=== PATIENT | female | born 1950 | race Caucasian/White ===

== ENCOUNTER 2022-11-18 11:37 | Inpatient (IN) ==
[~2022-11-18 11:37] MED LIST: Buffered Lidocaine 1% SYRIN 1 ml INTRADERM ONE; Lactated Ringers 1000 ml BAG 1,000 ML IV SCH
[2022-11-18] MEDS ORDERED: ceFAZolin 2 GM PREMIX 2 GM/50 ML BAG ONE (12:22)
[2022-11-18] MEDS ORDERED: ROPIVACAINE 5 MG/ML 30 ML BTL (0.5%) ONE ×2 (14:00→14:05)
[2022-11-18] MEDS ORDERED: Midazolam 2 mg/2 ml VIAL 1 mg/ml 2 ml VIAL (2 mg) ONE ×2 (14:02→15:00)
[2022-11-18] MEDS ORDERED: Naloxone 0.4 mg VIAL 0.4 mg/ml 1 ml VIAL IV PRN (14:44)
[2022-11-18] MEDS ORDERED: Ondansetron 4 mg VIAL 2 MG/ML 2 ml VIAL IV PRN ×2 (14:44→15:25)
[2022-11-18] MEDS ORDERED: fentaNYL 100 mcg/2 ml 50 MCG/ML VIAL IV PRN (14:44)
[2022-11-18] MEDS ORDERED: Acetaminophen IV 1 GM/100ML 1,000 MG/100 ML BAG IV PRN (14:44)
[2022-11-18] MEDS ORDERED: HYDROmorphone 1 MG/1 ML SYRINGE IV PRN (14:44)
[2022-11-18] MEDS ORDERED: Morphine 2 MG/ML SYRINGE IV PRN (15:25)
[2022-11-18] MEDS ORDERED: Ondansetron ODT 4 mg TAB 4 MG TAB PO PRN (15:25)
[2022-11-18] MEDS ORDERED: Lactulose 30 ml UDC PO PRN (15:25)
[2022-11-18] MEDS ORDERED: Magnesium Hydroxide LIQ 30 ML UDC PO PRN (15:25)
[2022-11-18] MEDS ORDERED: Lactated Ringers 1000 ml BAG 1,000 ML IV SCH (16:00)
[2022-11-18] MEDS: Magnesium Hydroxide LIQ 30 ML UDC PO SCH (20:05)
[2022-11-18] MEDS: BALSALAZIDE DISO 750 MG PO SCH (22:16)
[2022-11-18] MEDS: Latanoprost 0.005% 2.5 ml BTL BOTH EYES SCH (22:16)
[2022-11-18] MEDS: ceFAZolin 1 GM ADVAN 1 GM in NS 0.9% 50 ML 50 ML IVPB SCH (23:31)
[2022-11-19 06:06] LABS: Hematocrit 32 % (35-47); Hemoglobin 10.5 g/dL (12.0-16.0); Platelet Count 262 10^3/uL (150-450)
[2022-11-19 06:25] LABS: Calcium 9.4 mg/dL (8.6-10.3); Creatinine, Serum 0.63 mg/dL (0.51-0.95); Potassium 3.7 mmol/L (3.5-5.0); eGFR CKD-EPI 93.6 (>60)
[2022-11-19] MEDS: ceFAZolin 1 GM ADVAN 1 GM in NS 0.9% 50 ML 50 ML IVPB SCH ×2 (07:31→14:26)
[2022-11-19] MEDS: Magnesium Hydroxide LIQ 30 ML UDC PO SCH ×2 (08:58→19:52)
[2022-11-19] MEDS: Vitamin THERAPEUTIC TAB PO SCH (09:00)
[2022-11-19] MEDS ORDERED: Irbesartan/Hydrochlor 150/12.5 TAB PO SCH (09:00)
[2022-11-19] MEDS: BALSALAZIDE DISO 750 MG PO SCH ×3 (09:08→19:52)
[2022-11-19] MEDS: Latanoprost 0.005% 2.5 ml BTL BOTH EYES SCH (19:52)
[2022-11-20 05:42] LABS: Hematocrit 31 % (35-47); Hemoglobin 10.1 g/dL (12.0-16.0); Mean Platelet Volume 7.9 fL (7.4-10.4); Platelet Count 232 10^3/uL (150-450)
[2022-11-20] MEDS: BALSALAZIDE DISO 750 MG PO SCH ×3 (10:40→20:31)
[2022-11-20] MEDS: Vitamin THERAPEUTIC TAB PO SCH (10:40)
[2022-11-20] MEDS: Magnesium Hydroxide LIQ 30 ML UDC PO SCH ×2 (10:45→20:41)
[2022-11-20] MEDS: Latanoprost 0.005% 2.5 ml BTL BOTH EYES SCH (20:32)
[2022-11-21 06:01] LABS: Hematocrit 28 % (35-47); Hemoglobin 9.5 g/dL (12.0-16.0); Mean Platelet Volume 8.2 fL (7.4-10.4); Platelet Count 218 10^3/uL (150-450)
[2022-11-21] MEDS: Magnesium Hydroxide LIQ 30 ML UDC PO SCH ×2 (07:45→20:18)
[2022-11-21] MEDS: BALSALAZIDE DISO 750 MG PO SCH ×3 (07:56→20:18)
[2022-11-21] MEDS: Vitamin THERAPEUTIC TAB PO SCH (07:56)
[2022-11-21 17:04] LABS: Rapid COVID-19 Molecular Undetected (Undetected)
[2022-11-21] MEDS: Latanoprost 0.005% 2.5 ml BTL BOTH EYES SCH (20:17)
[2022-11-22 06:21] LABS: Hematocrit 28 % (35-47); Hemoglobin 9.3 g/dL (12.0-16.0); Platelet Count 303 10^3/uL (150-450)
[2022-11-22 07:46] VITALS: BP 145/80
[2022-11-22] MEDS: Magnesium Hydroxide LIQ 30 ML UDC PO SCH (07:58)
[2022-11-22] MEDS: Vitamin THERAPEUTIC TAB PO SCH (08:28)
[2022-11-22] MEDS: BALSALAZIDE DISO 750 MG PO SCH (08:28)
== END 2022-11-22 11:05 | DRG 470 ==
LOC: INTOOBSV 11:37 → AA 11:37 → OBSVTOIN 15:30 → SSU 19:02
PROVIDERS: ADMIT Orthopaedic Surgery Adult Reconstructive Orthopaedic Surgery; ATTEND Orthopaedic Surgery Adult Reconstructive Orthopaedic Surgery

== ENCOUNTER 2024-01-23 05:32 | Observation (INO) ==
[~2024-01-23 05:32] MED LIST changes: -Buffered Lidocaine 1% SYRIN 1 ml INTRADERM ONE; -Lactated Ringers 1000 ml BAG 1,000 ML IV SCH; +Naloxone 0.4 mg VIAL 0.4 mg/ml 1 ml VIAL IV PRN
[2024-01-23] MEDS ORDERED: Tranexamic Acid 1 GM/100ML BAG 2,000 MG/200 ML BAG IV ONE (05:57)
[2024-01-23] MEDS ORDERED: ceFAZolin 2 GM PREMIX 2 GM/50 ML BAG ONE (05:57)
[2024-01-23 06:14] LABS: Rapid COVID-19 Molecular Undetected (Undetected)
[2024-01-23] MEDS ORDERED: ROPIVACAINE 5 MG/ML 30 ML BTL (0.5%) ONE (07:06)
[2024-01-23] MEDS ORDERED: Lidocaine 2% PF 5 ML VIAL ONE (07:16)
[2024-01-23] MEDS ORDERED: Ondansetron 4 mg VIAL 2 MG/ML 2 ml VIAL ONE ×2 (07:16→10:28)
[2024-01-23] MEDS ORDERED: Dexmedetomidine 200 mcg/2 ml 2 ml VIAL (200 mcg) ONE (07:16)
[2024-01-23] MEDS ORDERED: Albumin Human 5% 12.5 GM/250 ML BTL IV ONE (07:23)
[2024-01-23] MEDS ORDERED: Bupivacaine 0.5% PF 10 ML SDV VIAL INJ ONE (07:29)
[2024-01-23] MEDS ORDERED: Rocuronium 50 mg VIAL 10 mg/ml 5 ml VIAL (50 mg) ONE (07:49)
[2024-01-23] MEDS ORDERED: Lactulose 30 ml UDC PO PRN (10:13)
[2024-01-23] MEDS ORDERED: Ondansetron ODT 4 mg TAB 4 MG TAB PO PRN (10:13)
[2024-01-23] MEDS ORDERED: Magnesium Hydroxide LIQ 30 ML UDC PO PRN (10:13)
[2024-01-23] MEDS ORDERED: Ondansetron 4 mg VIAL 2 MG/ML 2 ml VIAL IV PRN (10:13)
[2024-01-23] MEDS ORDERED: fentaNYL 100 mcg/2 ml 50 MCG/ML VIAL ONE (10:27)
[2024-01-23] MEDS: Ondansetron 4 mg VIAL 2 MG/ML 2 ml VIAL IV PRN (10:32)
[2024-01-23] MEDS: fentaNYL 100 mcg/2 ml 50 MCG/ML VIAL IV PRN (10:35)
[2024-01-23] MEDS: Lactated Ringers 1000 ml BAG 1,000 ML IV SCH ×2 (12:34→15:22)
[2024-01-23] MEDS: Morphine 2 MG/ML SYRINGE IV PRN (12:53)
[2024-01-23] MEDS: Buffered Lidocaine 1% SYRIN 1 ml INTRADERM ONE (15:22)
[2024-01-23] MEDS: ceFAZolin 1 GM ADVAN 1 GM in NS 0.9% 50 ML 50 ML IVPB SCH (16:16)
[2024-01-23] MEDS: Latanoprost 0.005% 2.5 ml BTL BOTH EYES SCH (19:57)
[2024-01-23] MEDS: Magnesium Hydroxide LIQ 30 ML UDC PO SCH (19:59)
[2024-01-24 06:51] LABS: Hematocrit 32.3 % (35-45); Hemoglobin 10.7 g/dL (11.5-14.3); Mean Platelet Volume 8.6 fL (7.5-11.2); Platelet Count 243 10^3/uL (150-450)
[2024-01-24 07:08] LABS: Calcium 8.9 mg/dL (8.6-10.3); Creatinine, Serum 0.71 mg/dL (0.51-0.95); eGFR CKD-EPI 89.2 (>60)
[2024-01-24] MEDS ORDERED: Irbesartan 150 mg TAB (NF) PO SCH (09:00)
[2024-01-24] MEDS: Vitamin THERAPEUTIC TAB PO SCH (09:18)
[2024-01-24] MEDS: CMCS:DAPAGLIFLOZIN 10 MG TAB (NF) PO SCH (09:50)
[2024-01-24 10:05] VITALS: BP 138/64
== END 2024-01-24 13:35 | disposition home or self-care (01) ==
LOC: SSU 05:32 → OR 05:32
PROVIDERS: ADMIT Orthopaedic Surgery Adult Reconstructive Orthopaedic Surgery; ATTEND Orthopaedic Surgery Adult Reconstructive Orthopaedic Surgery